=== PATIENT | female | born 1990 | race Caucasian/White ===

== ENCOUNTER 2017-02-28 11:16 | Outpatient (CLI) | payer BC ==
[2017-02-28 12:11] LABS: Hematocrit 40.5 % (36.0-47.0); Mean Platelet Volume 7.7 fL (7.4-10.4); Red Blood Cell (RBC) Count 4.79 mill/uL (4.20-5.40); White Blood Cell (WBC) Count 4.7 thou/uL (4.8-10.8)
== END 2017-02-28 11:17 | disposition home or self-care (01) ==
LOC: LABBT 11:16
PROVIDERS: ATTEND Obstetrics & Gynecology
DX: Z01.812 Encounter for preprocedural laboratory examination (principal); N80.9 Endometriosis, unspecified; R19.09 Other intra-abdominal and pelvic swelling, mass and lump
CPT/HCPCS: 84703; 85027; 86850; 86900; 86901

== ENCOUNTER 2017-03-01 07:18 | Day surgery (SDC) | payer BC ==
[2017-02-28 11:34] VITALS: BMI 22.2
--- NOTE | 2017-02-28 19:43 | HP ---
DATE OF ADMISSION: 03/01/2017 REASON FOR ADMISSION: Persistent left adnexal mass consistent with endometrioma. SCHEDULED PROCEDURE: Partial left oophorectomy with excision of endometrioma, possible excision of e ndometriosis and chromotubation. HISTORY OF PRESENT ILLNESS: Ms. Schneider is a 26-year-old female who was referred fro [facility] in [facility] with 4 months of left lower quadrant pain and mass noted on exam and ultrasound. This mass has been followed and is most consistent in its appearance with an en dometrioma and has not strong. The patient desires definitive surgical management. OB AND INFUSION NURSE HISTORY: G0. No history of STDs, condoms for contraception. PAST MEDICAL HISTORY: None. PAST SURGICAL HISTORY: Appendectomy. ALLERGIES: None. MEDICATIONS: None. SOCIAL HISTORY: Denies tobacco, alcohol, or drug use. FAMILY HISTORY: Noncontributory. REVIEW OF SYSTEMS: Noncontributory. PHYSICAL EXAMINATION: GENERAL: female, 5 feet 7 inches, 142, BMI 22. VITAL SIGNS: Blood pressure 110/70. HEENT: Within normal limits. LUNGS: Clear to auscultation bilaterally. HEART: Regular rhythm. BREASTS: No masses bilaterally. ABDOMEN: Soft and nontender. No rebound or guarding. PELVIC: Vulva without lesions. Vagina without discharge. Cervix nulliparous. Uterus anteverted, 6 -week size. Adnexa mild discomfort bilaterally fullness on the left. EXTREMITIES: Without clubbing, cyanosis or edema. LABORATORY AND X-RAY FINDINGS: UCG negative. Radiology findings as noted with 5 cm greatest diamete r adnexal mass on the left that seems separate from ovary is most consistent with endometrioma. IMPRESSION: Persistent left adnexal mass, suspect endometrioma. PLAN: Laparoscopic management with da Magdalene robot including probable partial oophorectomy, excision of endometriosis and chromotubation. Patient understands risks and benefits of procedure. We will a dminister appropriate antibiotic and DVT prophylaxis.
[2017-03-01] MEDS ORDERED: CEFAZOLIN/Water 2 GM/20 ML SYRINGE ONE (08:44)
[2017-03-01] MEDS ORDERED: Bupivacaine/Epinephrine 0.25% 30 ML VIAL ONE (09:24)
[2017-03-01] MEDS ORDERED: Midazolam HCl 2 mg/2 ml Vial ONE (09:27)
[2017-03-01] MEDS ORDERED: HYDROmorphone 0.5 MG/0.5 ML SYRINGE ONE (09:41)
[2017-03-01] MEDS ORDERED: Fentanyl 100 MCG/2 ML VIAL ONE ×3 (09:41→13:06)
[2017-03-01] MEDS ORDERED: Morphine Sulfate 2 MG/ML SYRINGE SLOW IVP PRN (10:40)
[2017-03-01] MEDS ORDERED: HYDROmorphone 2 MG/ML VIAL SLOW IVP PRN (10:40)
[2017-03-01] MEDS ORDERED: Ondansetron HCl/PF 4 MG/2 ML Vial IVP PRN (10:40)
[2017-03-01] MEDS ORDERED: Ketorolac Tromethamine 30 MG/ML VIAL IVP PRN (10:40)
[2017-03-01] MEDS ORDERED: Promethazine HCl 25 MG/ML VIAL SLOW IVP PRN (10:40)
[2017-03-01] MEDS ORDERED: Meperidine HCl/PF 25 MG/ML VIAL SLOW IVP PRN (10:40)
[2017-03-01] MEDS ORDERED: Promethazine HCl 25 MG/ML VIAL IM PRN (10:40)
[2017-03-01] MEDS ORDERED: Promethazine HCl 25 MG/ML VIAL ONE (13:07)
--- NOTE | 2017-03-01 14:16 | OP ---
DATE OF SERVICE: 01/30/2017 PREOPERATIVE DIAGNOSIS: Suspected left endometrioma. POSTOPERATIVE DIAGNOSES: Left ovarian endometrioma with endometriosis of the cul-de-sac. PROCEDURE: Laparoscopic partial left oophorectomy, fulguration of endometriosis and chromotubation. SURGEON: Nba Guadalupe M.D. FREIGHT SEPARATOR: Sim Elizabeth M.D. COMPLICATIONS: None. SPECIMENS REMOVED: Left partial ovary. ESTIMATED BLOOD LOSS: 25 mL OPERATIVE FINDINGS: Intraoperatively, 1. Ovarian endometrioma with adhesions to the left pelvic side wall. 2. Endometriosis of the cul-de-sac of Andi, uterosacral ligaments and left ovarian fossa. 3. Left fill and spill with chromotubation, right partial spillage, but out loss of pressure seconda ry to leaking of chromotubation material per vagina, did not allow full evaluation of the right. DESCRIPTION OF OPERATIVE PROCEDURE: After obtaining proper informed consent, the patient was taken t o the operating room where endotracheal anesthesia was achieved without difficulty. The patient was prepped and draped in dorsal lithotomy position in Arnaldo stirrups. Side hand speculum placed in vagi na. The cervix was identified and grasped with single tooth tenaculum. Uterus sounded to 8 cm. VCa re diagnostic was placed without difficulty and after flushing the chromotubation line with a dilute 10 mL to 100 mL of normal saline solution. The speculum and tenaculum were removed. Ryan catheter placed. The legs were rotated down and the wrapping machine operator's gloves changed and turned his attention to the abdominal portion of the procedure. 5 mL of Marcaine injected at the umbilicus and an 11 mm incisio n made. Veress needle placed inside the abdominal cavity with confirmation of entry into the periton eal cavity via saline drop test. Insufflation was carried out with carbon dioxide max pressure of 15 . An 11 mm noncutting trocar was then introduced which confirmed entry into the peritoneal cavity af ter introducing the da Magdalene camera. No trauma to underlying viscera was noted. The patient was ethan geovani in steep Trendelenburg position and right and left lateral 8 mm da Magdalene trocars were placed late ral to the epigastric vessels and an 8 mm web marketing assistant port in the right upper quadrant. Da Magdalene was d ocked with monopolar scissors in the right hand and bipolar forceps fenestrated forceps in the left. Findings as noted on operative findings were noted. Suction irrigation was carried out. Areas of e ndometriosis in the cul-de-sac were fulgurated. There was one area overlying the rectum that was not removed due to its location. The area on the left uterosacral was fulgurated and the area on the ov austin fossa on the left was not fulgurated because of its close association with the ureter. No sig nificant endometriosis was noted in the anterior cul-de-sac or involving the right adnexa. Dissectin g the endometrioma on the left ovary off the pelvic side wall, it spontaneously began to drain and th e contents were suction irrigated out and were chocolate cyst as expected with an endometrioma. The spontaneous rupture area of the endometrium was identified. It was grasped with bipolar forceps. Us ing the monopolar scissors, an incision was made over this. A cyst wall was identified and this was dissected out with blunt and sharp dissection from the rest of the ovarian stroma. Once this was com pletely removed, it was placed in the cul-de-sac of Andi for future retrieval. The fossa of the c yst wall removal from the ovary was exposed, suction irrigated and rendered hemostatic using meticulo us bipolar cautery. Good hemostasis was noted. After this was done, Interceed was placed across the areas of fulguration as well as the ovarian fossa and the cul-de-sac because of anticipation of adhe jose of the ovary postoperatively this area. In addition, the ovary was wrapped with a piece of Inte rceed. Good hemostasis was noted throughout. The da Magdalene instruments were removed and the robot un docked. The camera was moved to one of the lateral 8 mm ports and at the 11 mm umbilical site the ov austin tissue was grasped and pulled into the trocar and removed from the abdomen in its entirety. The abdomen was then desufflated of carbon dioxide. Trocars removed x4. Fascia reapproximated at the 1 1 mm site with a 0 Vicryl on a UR-5 needle. Skin reapproximated x4 using 4-0 Monocryl, Dermabond. V Care was removed. Ryan catheter was removed. The patient was awakened, extubated and taken to the recovery room in good condition. She will be followed up at [facility] [place] in 3 weeks.
[2017-03-01] MEDS ORDERED: Ondansetron HCl/PF 4 MG/2 ML Vial ONE (16:53)
[2017-03-01] MEDS ORDERED: Esmolol 100 MG/10 ML VIAL ONE (16:53)
[2017-03-01] MEDS ORDERED: Glycopyrrolate 0.2 MG/ML 5 ML SYRINGE ONE (16:53)
[2017-03-01] MEDS ORDERED: Vecuronium 10 MG VIAL ONE (16:53)
[2017-03-01] MEDS ORDERED: Lidocaine 1% PF 5 ML VIAL ONE (16:53)
[2017-03-01] MEDS ORDERED: PHENYLEPHRINE-NS 100 MCG/ML 10 ML SYRINGE ONE (16:53)
[2017-03-01] MEDS ORDERED: Dexamethasone 20 MG/5 ML VIAL ONE (16:53)
[2017-03-01] MEDS ORDERED: Ketorolac Tromethamine 30 MG/ML VIAL ONE (16:53)
[2017-03-01] MEDS ORDERED: Propofol 200 MG/20 ML VIAL ONE (16:53)
== END 2017-03-01 16:05 | disposition home or self-care (01) ==
LOC: SDC 07:18
PROVIDERS: ATTEND Obstetrics & Gynecology
PROC: 0U514ZZ Destruction of Left Ovary, Percutaneous Endoscopic Approach (ICD-10-PCS; principal; 2017-03-01)
PROC: 0UB14ZZ Excision of Left Ovary, Percutaneous Endoscopic Approach (ICD-10-PCS; principal; 2017-03-01)
PROC: 3E1P88Z Irrigation of Female Reproductive using Irrigating Substance, Via Natural or Artificial Opening Endoscopic (ICD-10-PCS; principal; 2017-03-01)
DX: N80.1 Endometriosis of ovary (principal); N80.3 Endometriosis of pelvic peritoneum; N80.0 Endometriosis of uterus; Z90.49 Acquired absence of other specified parts of digestive tract; Z79.899 Other long term (current) drug therapy
CPT/HCPCS: 88305; 96374; J0131; J1100; J1170; J1885; J2001; J2250; J2405; J2550; J2704; J3010; Q9968

== ENCOUNTER 2017-04-06 00:30 | Emergency (ER) | payer BC, OTHER | END 2017-04-06 02:25 | disposition left against medical advice (07) | LOC: ERS 00:30 | DX: Z53.21 Procedure and treatment not carried out due to patient leaving prior to being seen by health care provider (principal) ==

== ENCOUNTER 2017-04-06 02:40 | Emergency (ER) | payer BC, OTHER | END 2017-04-06 03:01 | disposition home or self-care (01) | LOC: SCSER 02:40 | DX: S01.81XA Laceration without foreign body of other part of head, initial encounter (principal); W00.0XXA Fall on same level due to ice and snow, initial encounter; Y93.21 Activity, ice skating | CPT/HCPCS: 12011 ==